=== PATIENT | female | born 1935 | race Caucasian/White ===

== ENCOUNTER 2017-03-25 16:06 | Outpatient (CLI) | payer OTHER ==
[2014-02-11 11:40] VITALS: BP 150/76
== END 2017-03-25 16:07 ==
LOC: LABRHC 16:06
PROVIDERS: ATTEND Family Medicine
DX: C80.1 Malignant (primary) neoplasm, unspecified (principal)

== ENCOUNTER 2019-06-28 15:58 | Emergency (ER) | payer OTHER ==
--- NOTE | 2019-06-28 16:20 | ED Physician Documentation ---
General Adult - HISTORIAN Historian: patient - HPI Stated Complaint: RUQ abd pain Chief Complaint: General Adult Onset: days ago Timing: still present Severity: moderate Further Comments: yes (Pt is an 83 yo female with abd pain in the RUQ and toward midline. Pain was 7/10 in severity. Some occasional nausea, no vomiting. Pt has had similar pains over the past few months, but it is occuring more frequently and is more intense. Pt says that pain does come on approx 30 min after eating, and occurred on this occasion about 30 min after having breakfast at 11:30 am. Pt notes that she has had about 4 watery bm's that have occurred since having breakfast.) - ROS CONST: no problems EYES/ENT: none CVS/RESP: none GI/: abdominal pain, nausea, diarrhea MS/SKIN/LYMPH: none - PAST HX Past History: other (breast cancer, uterine cancer, ) Surgeries/Procedures: hysterectomy, other (appendectomy) - SOCIAL HX Smoking History: non-smoker - FAMILY HX Family History: No - VITAL SIGNS Vital Signs: Vital Signs Temp Pulse Resp BP Pulse Ox 150/76 02/11/14 11:38 - REVIEWED ASSESSMENTS Nursing Assessment Reviewed: Yes Vitals Reviewed: Yes <Jamil Rosenthal - Last Filed: 06/28/19 16:54> - HPI Additional Information: Patient states that she has been having some attacks of pain in the RUQ area. Seems to precipitated by eating greasy foods. Pain usually starts about 1 hour after eating. Has had numerous episodes that started about 3 months ago. No nausea associated with symptoms. Has had some diarrhea. Stools have been normal color, no jaundice noted. Pain discribes as achy in nature. Pain radiates into the back area. No history of gall bladder problems. Mother had had a history of gall bladder problems. No fever or chills noted. - VITAL SIGNS Vital Signs: Vital Signs Temp Pulse Resp BP Pulse Ox 97.9 F 85 14 195/98 93 06/28/19 16:00 06/28/19 16:00 06/28/19 16:00 06/28/19 16:00 06/28/19 16:00 <Jonathon Holbrook - Last Filed: 06/28/19 18:23> - PAST HX Allergies/Adverse Reactions: Allergies Allergy/AdvReac Type Severity Reaction Status Date / Time Penicillins Allergy Verified 06/28/19 16:30 Home Medications: Ambulatory Orders Medication Instructions Recorded Alendronate Sodium 1 tab PO WEEK 06/28/19 Anastrozole [Arimidex] 1 tab PO DAILY 06/28/19 Progress - Progress Progress: 17:34 Patient has returned from CT scan. Patient is pain free at this time and feels back to normal. No further pain, nausea, or diarrhea. VS: P76 R20 BP 140/57 SAo2 90 Lungs: clear CV: RRR w/o murmur Abd: soft NT at this time, no masses or organomeagaly, BS present, mildly hypoactive <Jonathon Holbrook - Last Filed: 06/28/19 18:23> ED Results Lab/Radiology - Lab Results Lab Results: Lab Results 06/28/19 06/28/19 06/28/19 16:27 16:27 16:17 WBC 11.00 K/ul K/ul (4.00-12.00) RBC 4.82 M/ul M/ul (3.90-5.20) Hgb 14.8 g/dL g/dL (11.5-16.0) Hct 45.2 % % (34.5-46.5) MCV 94.0 fl fl (80.0-100.0) MCH 30.8 pg pg (28.0-34.0) MCHC 32.8 g/dL g/dL (30.0-36.0) RDW 12.8 % % (11.3-14.3) Plt Count 211 K/mm3 K/mm3 (130-400) Neut % (Auto) 76.5 % % (39.0-79.0) Lymph % (Auto) 13.8 % L % (16.0-50.0) Summers % (Auto) 7.1 % % (0.0-11.0) Eos % (Auto) 2.1 % % (0.0-6.8) Baso % (Auto) 0.5 % % (0.0-1.5) Neut # (Auto) 8.4 # k/uL H # k/uL (1.4-7.7) Lymph # (Auto) 1.5 # k/uL # k/uL (0.6-4.0) Summers # (Auto) 0.8 # k/uL # k/uL (0.0-0.9) Eos # (Auto) 0.2 # k/uL # k/uL (0.0-0.6) Baso # (Auto) 0.1 # k/uL # k/uL (0.0-0.5) Sodium 145 mmol/L mmol/L (137-145) Potassium 4.1 mmol/L mmol/L (3.5-5.1) Chloride 107 mmol/L mmol/L (98-107) Carbon Dioxide 29 mmol/L mmol/L (22-30) Anion Gap 13.1 BUN 19 mg/dL H mg/dL (7-17) Creatinine 1.02 mg/dL mg/dL (0.52-1.04) Estimated Creat Clear 66 Est GFR ( Amer) > 60 (60 - ) Est GFR (Non-Af Amer) > 60 (60 - ) Glucose 140 mg/dL H mg/dL (74-106) Calcium 9.8 mg/dL mg/dL (8.4-10.2) Total Bilirubin 1.3 mg/dL mg/dL (0.2-1.3) AST 355 U/L H U/L (15-46) ALT 552 U/L H U/L (0-35) Alkaline Phosphatase 161 U/L H U/L (38-126) Total Protein 7.6 g/dL g/dL (6.3-8.2) Albumin 4.3 g/dL g/dL (3.5-5.0) Lipase 132 U/L U/L (23-300) - Radiology Radiology Impressions: mild dilated CBD, echo densities on GB consistent with cholylithiasis, pancreas normal - Orders Orders: ED Orders Category Date Time Status Place IV Lock 1T Care 06/28/19 16:[address] ABD & PELVIS W/ CON Stat Exams 06/28/19 Ordered CBC/PLATELET/DIFF Routine Lab 06/28/19 16:17 Completed CMP Routine Lab 06/28/19 16:27 Completed LIPASE Stat Lab 06/28/19 16:27 Completed URINALYSIS Routine Lab 06/28/19 Ordered HYDROmorphone HCL/PF [Dilaudid] Med 06/28/19 16:48 Discontinued 1 mg .ROUTE .STK-MED ONE HYDROmorphone HCL/PF [Dilaudid] Med 06/28/19 16:52 Discontinued 1 mg IM NOW ONE Ondansetron HCl/Pf [Zofran] Med 06/28/19 16:49 Discontinued 4 mg .ROUTE .STK-MED ONE Ondansetron HCl/Pf [Zofran] Med 06/28/19 16:52 Discontinued 4 mg IVP NOW ONE <Jonathon Holbrook - Last Filed: 06/28/19 18:23> General Adult Physical Exam - PHYSICAL EXAM GENERAL APPEARANCE: moderate distress EENT: pharynx normal NECK: normal inspection, supple RESPIRATORY: no resp distress, chest non-tender, breath sounds normal CVS: reg rate & rhythm, heart sounds normal ABDOMEN: soft, no organomegaly, normal bowel sounds, tenderness (RUQ) BACK: normal inspection, no CVA tenderness SKIN: warm/dry, normal color EXTREMITIES: non-tender, normal range of motion, no evidence of injury, no edema NEURO: oriented X3, motor nml, sensation nml <Jamil Rosenthal - Last Filed: 06/28/19 16:54> Discharge <Jamil Rosenthal - Last Filed: 06/28/19 16:54> Decision to Admit: [id number] Date of Decison to Admit: 06/28/19 Decision Time: 18:21 <Jonathon Holbrook - Last Filed: 06/28/19 18:23> Clincal Impression: Elevated liver enzymes Cholelithiasis Qualifiers: Cholelithiasis location: gallbladder Cholecystitis presence: without cholecystitis Biliary obstruction: without biliary obstruction Qualified Code(s): K80.20 - Calculus of gallbladder without cholecystitis without obstruction Referrals: Jonathon Holbrook MD [Primary Care Provider] - 2 Days Condition: Stable Disposition: [facility]
[2019-06-28 16:30] LABS: BASOPHILS % 0.5 % (0.0-1.5); NEUTROPHILS # 8.4 # k/uL (1.4-7.7)
[2019-06-28 16:43] LABS: eGFR (Non-African) > 60
[2019-06-28] MEDS ORDERED: HYDROmorphone HCL/PF 1 MG/ML VIAL ONE (16:48)
[2019-06-28] MEDS ORDERED: ONDANSETRON HCL/PF 4 MG/ 2ML VIAL ONE (16:49)
[2019-06-28] MEDS ORDERED: HYDROmorphone HCL/PF 1 MG/ML VIAL IM ONE (16:52)
[2019-06-28] MEDS ORDERED: ONDANSETRON HCL/PF 4 MG/ 2ML VIAL IVP ONE ×2 (16:52→18:51)
--- NOTE | 2019-06-28 17:42 | Diagnostic Imaging Report ---
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 With; [id number], 90mL FINDINGS: There is a large hiatus hernia. Atelectasis is present in the lung bases. There is mild biliary dilat ation. Gallbladder shows internal densities suspicious for gallstone. Spleen is unremarkable. There is no adrenal lesion . No pancreatic lesion. The kidneys enhance normally. There is aortoiliac vascular calcification. Diverticulosis is p resent in the colon. An umbilical hernia contains only fat. Surgical clips are present in the right pelvis. The paula oswald has been removed. The bladder is unremarkable. Lumbar spondylosis is present. IMPRESSION: Possible cholelithiasis. Biliary dilatation Diverticulosis Bibasilar atelectasis Hiatus hernia Multifocal vascular calcification including renal and mesenteric arteries. Hysterectomy Read by: Dr. Aakash Lombardo Transcribed by: Transcribed Date: Electronically signed by: Dr. Aakash Lombardo Date signed: 06/28/2019 5:41:37 PM
[2019-06-28 19:06] VITALS: BP 158/60
[2019-06-29 07:48] LABS: APPEARANCE,URINE CLEAR (CLEAR); COLOR,URINE YELLOW (YELLOW); OCCULT BLOOD,URINE NEGATIVE (NEGATIVE); PH URINE 5.5 (5.0 - 8.0); UROBILINOGEN URINE 0.2 Eu (0.2-1.0)
== END 2019-06-28 18:55 | disposition short-term general hospital (02) ==
LOC: ED 15:58
DX: K80.20 Calculus of gallbladder without cholecystitis without obstruction (principal)
CPT/HCPCS: 74177; 80053; 81002; 82150; 83690; 85025; 85610; 96374; 96376; 99282; 99284; J1170; J2405; Q9967; S1016